=== PATIENT | female | born 1975 | race Caucasian/White ===

== ENCOUNTER 2020-07-31 08:04 | Outpatient (CLI) | payer OTHER ==
[2020-07-31] MEDS ORDERED: SODIUM BICARBONATE 4.2%, 5ML ONE (09:56)
[2020-07-31] MEDS ORDERED: LIDOCAINE 1%, 20ML ONE (09:56)
[2020-07-31] MEDS ORDERED: LIDOCAINE 1%-EPI 1:100K, 20ML ONE (09:56)
== END 2020-07-31 23:59 | disposition home or self-care (01) ==
LOC: CFH 08:04
PROVIDERS: ATTEND Family Medicine
DX: R92.8 Other abnormal and inconclusive findings on diagnostic imaging of breast (principal); D05.12 Intraductal carcinoma in situ of left breast
CPT/HCPCS: 19081; 77065; 88305; J3490

== ENCOUNTER → 2020-09-06 | Outpatient (CLI) | payer OTHER ==
[~2020-09-06] MED LIST: 5-HY100C3 PO; CALC500C2 PO; CHOL10003 PO; Calcium PO; DIM PO; MELA1TAB46 PO; [UNRECOGNIZED DRUG - OTHER] PO
[2020-09-06 16:21] LABS: BASOPHILS % (AUTO) 1 % (0-1); EOSINOPHILS % (AUTO) 2 % (1-7); LYMPHOCYTES % (AUTO) 28 % (22-44); MEAN CORPUSCULAR HEMOGLOBIN 30.2 pg (27.0-34.8); MEAN CORPUSCULAR HGB CONC 32.6 g/dL (32.4-35.8); MEAN PLATELET VOLUME 11.4 fL (7.4-10.4); MONOCYTES % (AUTO) 11 % (2-9); NEUTROPHILS % (AUTO) 59 % (42-75); PLATELET COUNT 228 x10^3/uL (130-400); RED BLOOD COUNT 4.38 x10^6/uL (3.82-5.3); RED CELL DISTRIBUTION WIDTH 13.6 % (9.6-15.2)
== END | disposition home or self-care (01) ==
LOC: STAR 15:22
PROVIDERS: ATTEND Surgery
DX: Z01.818 Encounter for other preprocedural examination (principal); Z15.01 Genetic susceptibility to malignant neoplasm of breast; D05.12 Intraductal carcinoma in situ of left breast; Z85.3 Personal history of malignant neoplasm of breast
CPT/HCPCS: 36415; 84703; 85025

== ENCOUNTER → 2020-09-11 | Outpatient (CLI) | payer OTHER | END | disposition home or self-care (01) | LOC: RAD 14:24 | PROVIDERS: ATTEND Surgery | DX: D05.12 Intraductal carcinoma in situ of left breast (principal) | CPT/HCPCS: 38792; A9541 ==

== ENCOUNTER 2020-09-12 05:18 | Day surgery (SDC) | payer OTHER ==
[2020-09-11] MEDS: SCOPOLAMINE 1MG PATCH TD SCH (07:00)
[~2020-09-12] VITALS: Ht 167.6 cm; Wt 91.9 kg
[2020-09-12 06:14] LABS: HCG UR SG 1.009 (1.003-1.030)
[2020-09-12] MEDS ORDERED: BUPIVACAINE/PF 0.5% ONE (06:16)
[2020-09-12] MEDS ORDERED: EPINEPHRINE 1 MG/ML, 1ML ONE (06:16)
[2020-09-12] MEDS ORDERED: ISOSULFAN BLUE 10 MG/ML, 5ML IV ONE ×2 (06:16→07:44)
[2020-09-12] MEDS ORDERED: GENTAMICIN 80 MG/2 ML ONE (06:16)
[2020-09-12 06:17] VITALS: BP 122/82
[2020-09-12] MEDS ORDERED: LACTATED RINGERS 1,000 ML IV SCH (06:30)
[2020-09-12] MEDS ORDERED: CHLORHEXIDINE 15 ML UDC PO ONE (06:30)
[2020-09-12] MEDS ORDERED: SCOPOLAMINE 1MG PATCH TD ONE (06:44)
[2020-09-12] MEDS ORDERED: ACETAMINOPHEN 650 MG/20.3 ML UDC ONE (06:44)
[2020-09-12] MEDS ORDERED: MIDAZOLAM 1 MG/ML, 2ML ONE (06:45)
[2020-09-12] MEDS ORDERED: FENTANYL PF 250 MCG/5ML ONE (06:46)
[2020-09-12] MEDS ORDERED: ACETAMINOPHEN 500 MG TABLET PO ONE (07:00)
[2020-09-12] MEDS ORDERED: PROMETHAZINE 25 MG/ML, 1ML IVPush PRN (07:00)
[2020-09-12] MEDS ORDERED: DIPHENHYDRAMINE 50 MG/ML, 1ML IVPush PRN (07:00)
[2020-09-12] MEDS ORDERED: FENTANYL PF 100 MCG/2ML IV PRN (07:00)
[2020-09-12] MEDS ORDERED: MEPERIDINE/PF 25MG/0.5ML IVPush PRN (07:00)
[2020-09-12] MEDS ORDERED: ONDANSETRON 2MG/ML, 2ML IVPush PRN (07:00)
[2020-09-12] MEDS ORDERED: DIAZEPAM 5 MG/ML, 2ML IVPush PRN (07:00)
[2020-09-12] MEDS ORDERED: HYDROmorphone 1 MG/ML, 1ML INJ IVPush PRN (07:00)
[2020-09-12] MEDS: SCOPOLAMINE 1MG PATCH TD SCH (07:01)
[2020-09-12] MEDS ORDERED: DEXAMETHASONE 4 MG/ML, 1ML ONE (07:21)
[2020-09-12] MEDS ORDERED: PROPOFOL 10 MG/ML, 20ML ONE (07:21)
[2020-09-12] MEDS ORDERED: LIDOCAINE 1%, 10ML ONE (07:21)
[2020-09-12] MEDS ORDERED: ROCURONIUM 10 MG/ML,10ML ONE (07:21)
[2020-09-12] MEDS ORDERED: CEFAZOLIN 1,000 MG ONE (07:49)
[2020-09-12] MEDS ORDERED: FENTANYL PF 100 MCG/2ML ONE (10:45)
[2020-09-12] MEDS ORDERED: MEPERIDINE/PF 25MG/ML,1ML ONE (10:46)
[2020-09-12] MEDS ORDERED: DIAZEPAM 5 MG/ML, 2ML ONE (10:46)
[2020-09-12] MEDS ORDERED: OXYcodone 5 MG/5 ML ORAL.SOL UDC ONE (10:46)
[2020-09-12] MEDS: OXYcodone 5 MG/5 ML ORAL.SOL UDC PO PRN ×2 (10:49→12:59)
== END 2020-09-12 14:10 | disposition home or self-care (01) ==
LOC: OUT 05:18
PROVIDERS: ATTEND Surgery
DX: Z15.01 Genetic susceptibility to malignant neoplasm of breast (principal); D05.12 Intraductal carcinoma in situ of left breast; N60.81 Other benign mammary dysplasias of right breast; Z17.0 Estrogen receptor positive status [ER+]; Z82.49 Family history of ischemic heart disease and other diseases of the circulatory system
CPT/HCPCS: 15570; 15777; 19303; 19357; 38525; 81025; 88305; 88307; 88333; C1729; C1762; C1789; J0171; J0690; J1100; J1580; J2175; J2250; J2704; J3010; J3360; J7120

== ENCOUNTER 2020-10-04 05:36 | Day surgery (SDC) | payer MEDICARE, OTHER ==
[~2020-10-04] VITALS: Ht 167.6 cm; Wt 87.6 kg
[2020-10-04 06:21] VITALS: BP 114/78
[2020-10-04] MEDS ORDERED: SCOP1PAT11 TD (06:28)
[2020-10-04] MEDS ORDERED: CEPH-376 PO (06:28)
[2020-10-04] MEDS ORDERED: LACTATED RINGERS 1,000 ML IV SCH (06:30)
[2020-10-04] MEDS ORDERED: CHLORHEXIDINE 15 ML UDC PO ONE (06:30)
[2020-10-04] MEDS ORDERED: VANCOMYCIN 1,000 MG ONE (06:35)
[2020-10-04] MEDS ORDERED: BUPIVACAINE/PF 0.5% ONE (06:35)
[2020-10-04] MEDS ORDERED: CEFAZOLIN 1,000 MG ONE ×2 (06:35→08:03)
[2020-10-04] MEDS ORDERED: EPINEPHRINE 1 MG/ML, 1ML ONE (06:35)
[2020-10-04] MEDS ORDERED: GENTAMICIN 80 MG/2 ML ONE (06:35)
[2020-10-04] MEDS ORDERED: MIDAZOLAM 1 MG/ML, 2ML ONE (06:57)
[2020-10-04] MEDS ORDERED: FENTANYL PF 100 MCG/2ML ONE ×3 (06:57→08:56)
[2020-10-04] MEDS ORDERED: HYDROmorphone 1 MG/ML, 1ML INJ IVPush PRN (07:30)
[2020-10-04] MEDS ORDERED: ONDANSETRON 2MG/ML, 2ML IVPush PRN (07:30)
[2020-10-04] MEDS ORDERED: PROMETHAZINE 25 MG/ML, 1ML IVPush PRN (07:30)
[2020-10-04] MEDS ORDERED: ACETAMINOPHEN 325 MG TABLET PO PRN (07:30)
[2020-10-04] MEDS ORDERED: MEPERIDINE/PF 25MG/0.5ML IVPush PRN (07:30)
[2020-10-04] MEDS ORDERED: OXYcodone 5 MG/5 ML ORAL.SOL UDC PO PRN (07:30)
[2020-10-04] MEDS ORDERED: HYDROcodone/APAP 7.5-325MG/15ML UDC PO PRN (07:30)
[2020-10-04] MEDS ORDERED: PROPOFOL 10 MG/ML, 20ML ONE (08:03)
[2020-10-04] MEDS ORDERED: ONDANSETRON 2MG/ML, 2ML ONE (08:03)
[2020-10-04] MEDS ORDERED: OXYcodone 5 MG/5 ML ORAL.SOL UDC ONE (08:56)
[2020-10-04] MEDS ORDERED: ACETAMINOPHEN 650 MG/20.3 ML UDC ONE (08:56)
[2020-10-04] MEDS: FENTANYL PF 100 MCG/2ML IV PRN ×2 (09:00→09:20)
[2020-10-04] MEDS ORDERED: HYDROmorphone 2 MG/ML, 1ML ONE (09:23)
[2020-10-04] MEDS ORDERED: LORazepam 2 MG/ML, 1ML ONE (09:43)
[2020-10-04] MEDS ORDERED: LORazepam 2 MG/ML, 1ML IVPush PRN (10:00)
== END 2020-10-04 13:40 | disposition home or self-care (01) ==
LOC: OUT 05:36
PROVIDERS: ATTEND Plastic Surgery
DX: T85.79XA Infection and inflammatory reaction due to other internal prosthetic devices, implants and grafts, initial encounter (principal); N64.1 Fat necrosis of breast; Z82.49 Family history of ischemic heart disease and other diseases of the circulatory system; Y83.8 Other surgical procedures as the cause of abnormal reaction of the patient, or of later complication, without mention of misadventure at the time of the procedure
CPT/HCPCS: 11971; 14301; 14302; 81025; C1729; J0171; J0690; J1170; J1580; J2060; J2250; J2405; J2704; J3010; J3370; J7120